=== PATIENT | male | born 1960 | race Caucasian/White ===

== ENCOUNTER → 2022-08-26 | Outpatient (CLI) | payer BC ==
--- NOTE | 2022-08-26 13:03 | CT ---
EXAMINATION TYPE: CT thoracic spine wo con DATE OF EXAM: 08/26/2022 COMPARISON: CT thoracicolumbar spine July 12, 2022 HISTORY: middle to upper back pain CT DLP: 1393.10 mGycm, Automated Exposure Control for Dose Reduction was Utilized. TECHNIQUE: CT scan of the thoracic spine is performed without contrast. FINDINGS: No acute fracture or dislocation in the thoracic spine. Slight convex scoliotic curvature p ositioning is redemonstrated. Vertebral body heights and disc space heights are maintained. Spinal ca nal is grossly preserved. Visualized lungs are grossly clear. There is coronary artery calcification in the LAD distribution no james. Visualized upper abdomen shows no significant abnormality. IMPRESSION: No significant finding is seen to account for patient's clinical symptoms. MRI follow-up may be beneficial. No significant change from prior.
== END | disposition home or self-care (01) ==
LOC: RADCTMAIN 07:54
PROVIDERS: ATTEND Family Medicine
DX: M54.6 Pain in thoracic spine (principal)
CPT/HCPCS: 72128

== ENCOUNTER → 2022-10-13 | Outpatient (CLI) | payer BC ==
[2022-10-13 22:31] LABS: HCT 46.5 % (39.6-50.0); HGB 15.7 d/dL (12.0-15.0); MCH 31.1 pg (27.0-32.0); MCHC 33.8 d/dL (32.0-37.0); MCV 92.1 FL (80.0-97.0); Mean Platelet Volume 11.8 FL (9.5-12.2); NRBC Per 100 WBC 0 X 10*3/uL (0.00-0.01); Platelet Count 215 X 10*3/uL (140-440); RBC 5.05 X 10*6/uL (4.40-5.60); RDW 12.8 % (11.5-14.5); WBC 8.06 X 10*3/uL (4.50-10.00)
[2022-10-14 02:50] LABS: Blood Urea Nitrogen 14.7 mg/dL (9.0-27.0); Carbon Dioxide 29.2 mmol/L (21.6-31.8); Chloride 101 mmol/L (96-109); Potassium 4.2 mmol/L (3.5-5.5); Sodium 140 mmol/L (135-145)
== END | disposition home or self-care (01) ==
LOC: LABPAT 15:25
PROVIDERS: ATTEND Internal Medicine Interventional Cardiology
DX: Z01.812 Encounter for preprocedural laboratory examination (principal); R94.39 Abnormal result of other cardiovascular function study
CPT/HCPCS: 80051; 82565; 84520; 85027

== ENCOUNTER 2022-10-17 09:10 | Day surgery (SDC) | payer BC ==
[~2022-10-17 09:10] MED LIST: ALPRAZolam 0.25 MG TAB PO PRN; ALPRAZolam 0.5 MG TAB PO PRN; ASPIRIN 325 MG TAB PO STA; ATORVASTATIN 80 MG TAB PO STA; HEPARIN SODIUM,PORCINE 10,000 UNIT in SODIUM CHLORIDE 0.9% 1,000 ML IRRIGATION PRN; HEPARIN SODIUM,PORCINE 2,500 UNIT in SODIUM CHLORIDE 0.9% 250 ML IRRIGATION PRN; NITROGLYCERIN SL TABS 0.4 MG TAB SUBLINGUAL PRN
[2022-10-17] MEDS: SODIUM CHLORIDE 0.9% 1,000 ML in EMPTY BAG 1 BAG IV SCH ×2 (09:31→14:54)
[2022-10-17] MEDS ORDERED: fentaNYL (PF) 50 MCG/ML 2 ML AMP ONE (09:48)
[2022-10-17] MEDS ORDERED: LIDOCAINE 1% INJ 10MG/ML (5 ML VIAL-PF) SQ ONE (09:50)
[2022-10-17] MEDS ORDERED: fentaNYL (PF) 50 MCG/1 ML VIAL IV ONE (09:51)
[2022-10-17] MEDS ORDERED: VERAPAMIL SYRINGE (5 MG/10 ML) INTRAARTER ONE (09:52)
[2022-10-17] MEDS: HEPARIN SODIUM 1,000 UN/ML (10ML VL) IV ONE ×4 (09:56→10:35)
[2022-10-17] MEDS ORDERED: PRASUGREL 10 MG TAB ONE (10:05)
[2022-10-17] MEDS ORDERED: MIDAZOLAM 2 MG/2 ML VIAL IV ONE (10:09)
[2022-10-17] MEDS ORDERED: PRASUGREL 10 MG TAB PO ONE (10:09)
[2022-10-17] MEDS ORDERED: IOPAMIDOL-370 100ML BTL INJ ONE ×2 (10:19→11:02)
[2022-10-17] MEDS ORDERED: IOPAMIDOL-300 100ML BTL INJ ONE (10:46)
[2022-10-17] MEDS ORDERED: ATROPINE SULFATE 0.1 MG/ML 10ML SYRINGE IV PRN (11:19)
[2022-10-17] MEDS ORDERED: ZOLPIDEM 5 MG TAB PO PRN (11:19)
[2022-10-17] MEDS ORDERED: MAG HYDROX/AL HYDROX/SIMETH 30 ML CUP PO PRN (11:19)
[2022-10-17] MEDS ORDERED: NITROGLYCERIN SL TABS 0.4 MG TAB SUBLINGUAL PRN (11:19)
[2022-10-17] MEDS ORDERED: RX INFO: IV CONTRAST WAS GIVEN 1 EACH MISC MISCELLANE PRN (11:19)
[2022-10-17] MEDS ORDERED: SODIUM CHLORIDE 0.9% 1,000 ML in EMPTY BAG 1 BAG IV SCH (11:30)
--- NOTE | 2022-10-17 11:30 | P.CARDCATH ---
Date of Procedure: 10/17/22 Description of Procedure: Cardiac Catheterization: The patient is a 62-year-old male with a known history of hypertension, hyperlipidemia, diet-controlled diabetes mellitus who has been followed by Dr. Luis and had a recent abnormal stress echocardiogram. Recommendations were made regarding cardiac catheterization, the risks and the complications were discussed with the patient who is in full understanding and agreement. Procedure Description: Patient was brought to [facility] in fasting semi-sedated state after receiving Fentanyl and Benadryl achieiving moderate conscious sedated state. Using Xylocaine Anesthesia and Seldinger technique, a 6-Malay sheath was introduced in the right radial artery . Subsequently, selective coronary angiography was performed using a 5-Malay 3.5 bend Zandra catheter. Multiple views of the coronary artery including hemiaxial views were obtained. The right Zandra catheter was used to cross the aortic valve and LVEDP was calculated. PCI: After removing the catheters a 6-Malay EBU 3.75 guiding catheter was introduced and after cannulating the left main a 0.014 BMW J-wire was positioned in the distal LAD. Subsequently a 3.0 x 12 mm Treck was advanced and multiple inflation at 8 sulema was done. Subsequently a [employer] [place] eye intravascular ultrasound catheter was introduced and imaging were obtained. Subsequently 3.5 x 28 mm Xience lisa point stent was deployed and postdilated at 16 sulema, repeat intravascular ultrasound was performed and a 3.5 x 20 mm NC Treck balloon was advanced and inflation in the distal segment of the stent was done and subsequently a 4.5 x 15 mm NC Treck balloon was advanced and inflation in the proximal segment of the stent was performed. Subsequently a 4.5 x 15 Xience lisa point stent was deployed proximal to the first one and deployed at 14 sulema. Repeat intravascular ultrasound imaging was obtained that revealed stable successful stenting. At that time the wire was removed and images were obtained. After removing the wire it was reintroduced and the first diagonal branch and a 2.5 x 12 mm Treck balloon was advanced into inflation at 8 sulema were done, after removing the balloon and 3.0 x 18 mm Xience lisa point stent was deployed at 16 sulema. Subsequently the wire was removed, images were obtained and revealed stable successful stenting. Following that, catheter and sheath were removed. Hemostasis was obtained with deployment of TR band . There was no immediate complication. Patient was returned to room in stable condition. Of note, the patient received a total of 10,000 units of intravenous heparin as well as intra-arterial verapamil. The patient received an oral loading dose of Effient, his ACT was monitored. He had mild chest discomfort and EKG changes with the diagonal branch inflation that resolved at the end of the procedure. Findings: Left main: This is a large-size vessel, bifurcating into LAD and left circumflex, the left main has no high-grade stenosis. LAD: This is a large-size vessel, reaching to the apex giving rise to a large proximal diagonal branch. The diagonal branch has 95% stenosis proximally. The mid LAD has 2 areas of severe stenosis up to 90%, the rest of the vessel has no high-grade stenosis. Left circumflex: This is a nondominant vessel, giving rise to obtuse marginal branch of small to moderate caliber that have no evidence of high-grade stenosis RCA: This is a dominant vessel, bifurcating distally into PDA and PLV the proximal RCA has mild intimal disease Left Ventriculogram: Not performed Hemodynamics: There was no gradient across the aortic valve , LVEDP was 12-14 mmHg Conclusion: 1. Severe stenosis in the mid LAD and the first diagonal branch 2. And mild disease in the RCA 3. Successful stenting of the mid LAD with reduction of stenosis from 90% to 0% with intravascular ultrasound imaging 4. Successful stenting of the first diagonal branch with reduction of stenosis from 95% to 0% Recommendations: The patient will continue on aspirin and Effient without any interruption for 6 months in addition to aggressive coronary risks modifications. The findings and the recommendations were discussed with the patient and the family and they were in full understanding and agreement. Duration of sedation is 72 minutes.
[2022-10-18] MEDS: SODIUM CHLORIDE 0.9% 1,000 ML in EMPTY BAG 1 BAG IV SCH (01:49)
[2022-10-18 07:08] LABS: African American GFR (CKD) >90 (>60 ml/min/1.73 sqM); Anion Gap 9 mmol/L; Blood Urea Nitrogen 16 mg/dL (9-20); Carbon Dioxide 24 mmol/L (22-30); Chloride 106 mmol/L (98-107); Glucose 105 mg/dL (74-99); Non-African American GFR(CKD) >90 (>60 ml/min/1.73 sqM); Potassium 4.2 mmol/L (3.5-5.1); Sodium 139 mmol/L (137-145)
[2022-10-18 07:12] VITALS: BP 132/88; PULSE 85; RESP 18; TEMP 98.1
[2022-10-18] MEDS ORDERED: hydroCHLOROthiazide 25 MG TAB PO SCH (09:00)
[2022-10-18] MEDS ORDERED: PRASUGREL 10 MG TAB PO SCH (09:00)
[2022-10-18] MEDS ORDERED: ASPIRIN 81 MG PO SCH (09:00)
[2022-10-18] MEDS ORDERED: VALSARTAN 160 MG TAB PO SCH (09:00)
[2022-10-18] MEDS ORDERED: ATORVASTATIN 40 MG TAB PO SCH (09:00)
[2022-10-18] MEDS ORDERED: METOPROLOL SUCCINATE (ER) 50 MG TAB.ER.24H PO SCH (09:00)
[2022-10-18 11:48] VITALS: BMI 30.6
== END 2022-10-18 13:07 | disposition home or self-care (01) ==
LOC: CATHCVL 09:10 → 6NMEDSUR 13:15 → CATHCVL 10-18 13:07
PROVIDERS: ATTEND Internal Medicine Interventional Cardiology
DX: M51.26 Other intervertebral disc displacement, lumbar region (principal); I25.10 Atherosclerotic heart disease of native coronary artery without angina pectoris; I10 Essential (primary) hypertension; E78.5 Hyperlipidemia, unspecified; E11.9 Type 2 diabetes mellitus without complications; Z79.82 Long term (current) use of aspirin; Z79.899 Other long term (current) drug therapy
CPT/HCPCS: 92978; 93458; 80048; C9600; C9601; C1769 ×3; C1887; C1894; C1725 ×4; C1753; C1874 ×3; J2250; J2001; J1644; Q9967 ×2; J3010

== ENCOUNTER → 2023-06-17 | Outpatient (CLI) | payer BC ==
[2023-06-17 13:48] LABS: Chol/HDL Ratio 3.85 Ratio; LDL Cholesterol,Calculated 49.9 mg/dL (0.0-131.0)
== END | disposition home or self-care (01) ==
LOC: LABWHC1 08:27
PROVIDERS: ATTEND Internal Medicine Interventional Cardiology
DX: E78.5 Hyperlipidemia, unspecified (principal)
CPT/HCPCS: 36415; 80061